=== PATIENT | female | born 1955 | race Caucasian/White ===

== ENCOUNTER 2017-02-03 01:41 | Inpatient (IN) | payer MEDICARE, MEDICAID ==
[~2017-02-03] VITALS: Ht 157.5 cm; Wt 111.2 kg
[2017-02-03] VITALS (9 sets, daily range): BP systolic 114–178; BP diastolic 53–85; PULSE 73–112; RESP 16–20; TEMP 95.8–98.3; O2SAT 90–96
[~2017-02-03 01:41] MED LIST: CIPR500T4 PO; COLA100C PO; IBUP400 PO; LORTA5 PO; TAMS0.4C67 PO
[2017-02-03] MEDS ORDERED: SODIUM CHLOR 0.9% 1000 ML INJ 1,000 ML IV SCH (02:01)
--- NOTE | 2017-02-03 02:07 | PD ---
HPI Chief Complaint: Flank/Kidney Pain Time Seen by Provider: 01:56 Travel History International Travel<30 days: No Contact w/Intl Traveler<30days: No Traveled to known affect area: No History of Present Illness HPI The patient is a 61-year-old female who presents emergency department for right flank pain. The patient states she had a negative salicylates either approximately 18 p.m. The patient then developed some right sided flank pain approximately 10 PM. The pain is sharp, persistent, radiates to the mid right back and down to the right lower quadrant, associated with nausea without any vomiting. The patient denies any dysuria, frequency, urgency, or hematuria. The patient had one episode of diarrhea at the onset of her symptoms and her last normal bowel movement was 3 hours prior to the onset of symptoms. The patient does have a history of previous hysterectomy, does note a history of nephrolithiasis with slightly worse pain at that time. She denies any known history of biliary colic. She denies any chest pain, shortness of breath, fever , chills, or sweats. The patient does not currently have a primary physician. PFSH Past Medical History Cancer: Yes (OVARIAN) Diminished Hearing: No : 3 Para: 3 Past Surgical History Gynecologic Surgery: Yes (OVARECTOMY WITH HYST) Hysterectomy: Yes Other Surgery: Yes (SHOULDER, HYSTERECTOMY) Social History Alcohol Use: No Tobacco Use: No Substance Use: No Allergies-Medications (Allergen,Severity, Reaction): Coded Allergies: Cortisone (Verified Allergy, Severe, SYNCOPY, 02/03/17) Seafood (Verified Allergy, Severe, HIVES, 02/03/17) Reported Meds & Prescriptions Reported Meds & Active Scripts Active No Active Prescriptions or Reported Medications Review of Systems Except as stated in HPI: all other systems reviewed are Neg General / Constitutional: No: Fever Cardiovascular: No: Chest Pain or Discomfort Respiratory: No: Shortness of Breath Gastrointestinal: Positive: Nausea, Diarrhea, Abdominal Pain, No: Vomiting, Constipation Genitourinary: No: Urgency, Frequency, Dysuria, Hematuria Neurologic: No: Dizziness Physical Exam Narrative GENERAL: Awake, alert, nontoxic-appearing 61-year-old female appears her stated age is in no acute respiratory distress. SKIN: Focused skin assessment warm/dry. HEAD: Atraumatic. Normocephalic. EYES: Pupils equal and round. No scleral icterus. No injection or drainage. ENT: No nasal bleeding or discharge. Mucous membranes pink and moist. NECK: Trachea midline. No JVD. CARDIOVASCULAR: Regular rate and rhythm. No murmur appreciated. RESPIRATORY: No accessory muscle use. Clear to auscultation. Breath sounds equal bilaterally. GASTROINTESTINAL: Abdomen soft, tender palpation right upper quadrant and right flank. Back: No CVA tenderness. MUSCULOSKELETAL: No obvious deformities. No clubbing. No cyanosis. No edema. NEUROLOGICAL: Awake and alert. No obvious cranial nerve deficits. Motor grossly within normal limits. Normal speech. PSYCHIATRIC: Appropriate mood and affect; insight and judgment normal. Data Data Last Documented VS Vital Signs Date Time Temp Pulse Resp B/P Pulse Ox O2 Delivery O2 Flow Rate FiO2 02/03/17 02:56 17 02/03/17 02:55 93 159/65 93 Room Air 02/03/17 01:43 98.3 Orders Complete Blood Count With Diff (02/03/17 02:01) Comprehensive Metabolic Panel (02/03/17 02:01) Lipase (02/03/17 02:01) Lactic Acid (02/03/17 02:01) Urinalysis - C+S If Indicated (02/03/17 02:01) Ct Abd/Pel W/O Iv Contrast (02/03/17 02:01) Iv Access Insert/Monitor (02/03/17 02:01) Ecg Monitoring (02/03/17 02:01) Oximetry (02/03/17 02:01) Morphine Inj (Morphine Inj) (02/03/17 02:15) Ondansetron Inj (Zofran Inj) (02/03/17 02:15) Sodium Chlor 0.9% 1000 Ml Inj (Ns 1000 M (02/03/17 02:01) Sodium Chloride 0.9% Flush (Ns Flush) (02/03/17 02:15) Ketorolac Inj (Toradol Inj) (02/03/17 02:15) Urine Culture (02/03/17 02:54) Ciprofloxacin 400 Mg Premix (Cipro 400 M (02/03/17 03:15) Morphine Inj (Morphine Inj) (02/03/17 03:15) Consult Urology (02/03/17 ) Admit To Inpatient (02/03/17 ) Vital Signs (Adult) Q4H (02/03/17 03:39) Activity Oob With Assistance (02/03/17 03:39) Electrical Line Mechanic / Telemetry .CONTINUOUS (02/03/17 03:39) Intake + Output JAVIER.QSHIFT (02/03/17 03:39) Diet Npo (02/03/17 Breakfast) Sodium Chloride 0.9% Flush (Ns Flush) (02/03/17 03:45) Sodium Chloride 0.9% Flush (Ns Flush) (02/03/17 09:00) Labs Laboratory Tests Test 02/03/17 02/03/17 02:05 02:54 White Blood Count 14.6 TH/MM3 Red Blood Count 4.77 MIL/MM3 Hemoglobin 14.9 GM/DL Hematocrit 42.9 % Mean Corpuscular Volume 89.8 FL Mean Corpuscular Hemoglobin 31.2 PG Mean Corpuscular Hemoglobin 34.8 % Concent Red Cell Distribution Width 13.1 % Platelet Count 248 TH/MM3 Mean Platelet Volume 8.8 FL Neutrophils (%) (Auto) 74.5 % Lymphocytes (%) (Auto) 16.8 % Monocytes (%) (Auto) 6.4 % Eosinophils (%) (Auto) 1.4 % Basophils (%) (Auto) 0.9 % Neutrophils # (Auto) 10.9 TH/MM3 Lymphocytes # (Auto) 2.4 TH/MM3 Monocytes # (Auto) 0.9 TH/MM3 Eosinophils # (Auto) 0.2 TH/MM3 Basophils # (Auto) 0.1 TH/MM3 CBC Comment DIFF FINAL Differential Comment Sodium Level 140 MEQ/L Potassium Level 4.2 MEQ/L Chloride Level 107 MEQ/L Carbon Dioxide Level 22.8 MEQ/L Anion Gap 10 MEQ/L Blood Urea Nitrogen 14 MG/DL Creatinine 1.08 MG/DL Estimat Glomerular Filtration 52 ML/MIN Rate Random Glucose 174 MG/DL Lactic Acid Level 1.6 mmol/L Calcium Level 8.9 MG/DL Total Bilirubin 0.6 MG/DL Aspartate Amino Transf 32 U/L (AST/SGOT) Alanine Aminotransferase 56 U/L (ALT/SGPT) Alkaline Phosphatase 104 U/L Total Protein 7.3 GM/DL Albumin 3.5 GM/DL Lipase 103 U/L Urine Color YELLOW Urine Turbidity CLOUDY Urine pH 5.5 Urine Specific [place] 1.026 Urine Protein 30 mg/dL Urine Glucose (UA) 70 mg/dL Urine Ketones 40 mg/dL Urine Occult Blood MOD Urine Nitrite NEG Urine Bilirubin NEG Urine Urobilinogen LESS THAN 2.0 MG/DL Urine Leukocyte Esterase LARGE Urine RBC 167 /hpf Urine WBC /hpf Urine WBC Clumps FEW Urine Squamous Epithelial 10 /hpf Cells Urine Transitional Epithelial 4 /hpf Cells Urine Renal Epithelial Cells 5 /hpf Urine Bacteria OCC /hpf Urine Hyaline Casts 3 /lpf Urine Mucus MOD /lpf Microscopic Urinalysis Comment CULTURE INDICATED MDM Medical Decision Making Medical Screen Exam Complete: Yes Emergency Medical Condition: Yes Medical Record Reviewed: Yes Interpretation(s) Laboratory Tests Test 02/03/17 02/03/17 02:05 02:54 White Blood Count 14.6 TH/MM3 Red Blood Count 4.77 MIL/MM3 Hemoglobin 14.9 GM/DL Hematocrit 42.9 % Mean Corpuscular Volume 89.8 FL Mean Corpuscular Hemoglobin 31.2 PG Mean Corpuscular Hemoglobin 34.8 % Concent Red Cell Distribution Width 13.1 % Platelet Count 248 TH/MM3 Mean Platelet Volume 8.8 FL Neutrophils (%) (Auto) 74.5 % Lymphocytes (%) (Auto) 16.8 % Monocytes (%) (Auto) 6.4 % Eosinophils (%) (Auto) 1.4 % Basophils (%) (Auto) 0.9 % Neutrophils # (Auto) 10.9 TH/MM3 Lymphocytes # (Auto) 2.4 TH/MM3 Monocytes # (Auto) 0.9 TH/MM3 Eosinophils # (Auto) 0.2 TH/MM3 Basophils # (Auto) 0.1 TH/MM3 CBC Comment DIFF FINAL Differential Comment Sodium Level 140 MEQ/L Potassium Level 4.2 MEQ/L Chloride Level 107 MEQ/L Carbon Dioxide Level 22.8 MEQ/L Anion Gap 10 MEQ/L Blood Urea Nitrogen 14 MG/DL Creatinine 1.08 MG/DL Estimat Glomerular Filtration 52 ML/MIN Rate Random Glucose 174 MG/DL Lactic Acid Level 1.6 mmol/L Calcium Level 8.9 MG/DL Total Bilirubin 0.6 MG/DL Aspartate Amino Transf 32 U/L (AST/SGOT) Alanine Aminotransferase 56 U/L (ALT/SGPT) Alkaline Phosphatase 104 U/L Total Protein 7.3 GM/DL Albumin 3.5 GM/DL Lipase 103 U/L Urine Color YELLOW Urine Turbidity CLOUDY Urine pH 5.5 Urine Specific [place] 1.026 Urine Protein 30 mg/dL Urine Glucose (UA) 70 mg/dL Urine Ketones 40 mg/dL Urine Occult Blood MOD Urine Nitrite NEG Urine Bilirubin NEG Urine Urobilinogen LESS THAN 2.0 MG/DL Urine Leukocyte Esterase LARGE Urine RBC 167 /hpf Urine WBC /hpf Urine WBC Clumps FEW Urine Squamous Epithelial 10 /hpf Cells Urine Transitional Epithelial 4 /hpf Cells Urine Renal Epithelial Cells 5 /hpf Urine Bacteria OCC /hpf Urine Hyaline Casts 3 /lpf Urine Mucus MOD /lpf Microscopic Urinalysis Comment CULTURE INDICATED Last Impressions Abdomen/Pelvis CT 02/03/17 0201 Signed Impressions: Service Date/Time: Friday, February 03, 2017 02:14 - CONCLUSION: Obstructive uropathy on the right side due to an 8 mm stone at the ureteropelvic junction. Eloy Garcia MD Differential Diagnosis Differential diagnosis includes nephrolithiasis, hydronephrosis, pyelonephritis , biliary colic, cholecystitis, pancreatitis, atypical appendicitis, diverticulitis. Narrative Course IV was established, labs are drawn and sent, and the patient was placed on cardiac telemetry monitoring and continuous pulse oximetry monitoring. The patient was administered morphine, Toradol, Zofran, and IV fluids. Noncontrast CT of the abdomen and pelvis was ordered. UA reveals 167 RBCs and innumerable WBCs, therefore, patient was administered Cipro 400 mg intravenously. Patient was reevaluated at 3 AM, still has mild discomfort, therefore, was redosed with morphine [address] reveals obstructive uropathy with an 8 mm stone. Patient has obstructive uropathy with 8 mm stone and underlying pyelonephritis, patient will need urology consultation as she may benefit from stent placement. Therefore, patient will be kept nothing by mouth, placed on IV fluids, the on-call medical service was paged for admission. Physician Communication Physician Communication The on-call medical service was paged for remission. I discussed the patient with Dr. Cabrales who agrees with admission. Diagnosis Primary Impression: Nephrolithiasis Additional Impressions: Obstructive uropathy Pyelonephritis Admitting Information Admitting Physician Requests: Admit Scripts No Active Prescriptions or Reported Meds Condition: Stable Dewey Mascorro MD Feb 03, 2017 02:06
[2017-02-03] MEDS ORDERED: SODIUM CHLORIDE 0.9% FLUSH 10 ML FLUSH IV FLUSH PRN ×2 (02:15→03:45)
[2017-02-03] MEDS ORDERED: KETOROLAC TROMETHAMINE 30 MG/ML (IVP) VIAL IVP ONE (02:15)
[2017-02-03] MEDS ORDERED: ONDANSETRON HCL 4 MG/2 ML VIAL IVP ONE (02:15)
[2017-02-03] MEDS ORDERED: MORPHINE SULFATE 4 MG/ML INJ IV PUSH ONE ×2 (02:15→03:15)
[2017-02-03 02:23] LABS: AUTOMATED NEUTROPHIL # 10.9 TH/MM3 (1.8-7.7); BASOPHIL # 0.1 TH/MM3 (0-0.2); BASOPHIL % 0.9 % (0.0-2.0); EOSINOPHIL # 0.2 TH/MM3 (0-0.4); EOSINOPHIL % 1.4 % (0.0-4.0); HEMATOCRIT 42.9 % (35.0-46.0); HEMO FLAGS DIFF FINAL; LYMPH % 16.8 % (9.0-44.0); LYMPHOCYTE # 2.4 TH/MM3 (1.0-4.8); MEAN CELL VOLUME 89.8 FL (80.0-100.0); MEAN CORPUSCULAR HEMOGLOBIN 31.2 PG (27.0-34.0); MEAN CORPUSCULAR HGB CONC 34.8 % (32.0-36.0); MONO % 6.4 % (0.0-8.0); NEUT % 74.5 % (16.0-70.0); PLATELET COUNT 248 TH/MM3 (150-450); RED BLOOD COUNT 4.77 MIL/MM3 (4.00-5.30); RED CELL DISTRIBUTION WIDTH 13.1 % (11.6-17.2); WHITE BLOOD COUNT 14.6 TH/MM3 (4.0-11.0)
[2017-02-03 02:34] LABS: ALT (GPT) 56 U/L (10-53); ANION GAP 10 MEQ/L (5-15); AST (GOT) 32 U/L (15-37); BICARBONATE 22.8 MEQ/L (21.0-32.0); BLOOD UREA NITROGEN 14 MG/DL (7-18); CHLORIDE 107 MEQ/L (98-107); GLOMERULAR FILTRATION RATE 52 ML/MIN (>89); POTASSIUM 4.2 MEQ/L (3.5-5.1); SODIUM (NA) 140 MEQ/L (136-145)
[2017-02-03 02:36] LABS: ALKALINE PHOSPHATASE 104 U/L (45-117); TOTAL BILIRUBIN ADULT 0.6 MG/DL (0.2-1.0)
[2017-02-03 03:09] LABS: BACTERIA, URINE OCC /hpf; BLOOD, URINE MOD (NEG); COMMENT (UR) CULTURE INDICATED; CULTURE IF INDICATED CULTURE INDICATED; GLUCOSE,URINE 70 mg/dL (NEG); HYALINE CAST, URINE 3 /lpf (RARE); KETONE, URINE 40 mg/dL (NEG); MUCUS URINE MOD /lpf (OCC); NITRITE,URINE NEG (NEG); PH, URINE 5.5 (5.0-8.5); RENAL EPITHELIAL CELLS 5 /hpf; SQUAMOUS EPITHELIAL CELL URINE 10 /hpf (0-5); TRANSITIONAL EPI CELLS, URINE 4 /hpf; URINE COLOR YELLOW (YELLW/STRAW)
[2017-02-03] MEDS ORDERED: CIPROFLOXACIN 400 MG PREMIX 200 ML IV ONE (03:15)
--- NOTE | 2017-02-03 03:17 | RADRPT ---
EXAM DATE/TIME: 02/03/2017 02:14 [facility] COMPARISON: CT ABDOMEN & PELVIS W/O CONTRAST, June 13, 2015, 6:23. INDICATIONS : Right flank pain with nausea for 4 hours ORAL CONTRAST: No oral contrast ingested. RADIATION DOSE: 25.96 CTDIvol (mGy) MEDICAL HISTORY : Ovarian cancer. SURGICAL HISTORY : Hysterectomy. Oopherectomy. ENCOUNTER: Initial ACUITY: 1 day PAIN SCALE: 8/10 LOCATION: Right flank TECHNIQUE: Volumetric scanning of the abdomen and pelvis was performed. Using automated exposure control and ad justment of the mA and/or kV according to patient size, radiation dose was kept as low as reasonably achievable to obtain optimal diagnostic quality images. DICOM format image data is available electro nically for review and comparison. FINDINGS: LOWER LUNGS: The visualized lower lungs are clear. LIVER: Homogeneous density without lesion for noncontrast technique. There is no dilation of the biliary tr ee. No calcified gallstones. SPLEEN: Normal size without lesion. PANCREAS: Within normal limits. KIDNEYS: There is mild hydronephrosis on the right side with a 8 mm calcified stone at the ureteropelvic junct ion causing obstruction. There is also some induration of the fat of the perirenal space suggesting pyelosinus backflow. The right ureter distal to the stone is normal in dimension. No additional lorena cified stones in the collecting system of the right kidney. No calcified stones in the left collecti ng system or ureter. ADRENAL GLANDS: Within normal limits. VASCULAR: There is no aortic aneurysm. BOWEL/MESENTERY: No dilated loops of small or large bowel. The appendix is identified in the right lower quadrant, is normal in dimension and the lumen contains some gas. Several small sigmoid diverticula without radi ographic of diverticulitis. ABDOMINAL WALL: Within normal limits. RETROPERITONEUM: There is no lymphadenopathy. BLADDER: No wall thickening or mass. REPRODUCTIVE: Hysterectomy. INGUINAL: There is no lymphadenopathy or hernia. MUSCULOSKELETAL: Within normal limits for patient age. CONCLUSION: Obstructive uropathy on the right side due to an 8 mm stone at the ureteropelvic junction. Eloy Garcia MD on February 03, 2017 at 3:10 Board Certified Radiologist. This report was verified electronically.
[2017-02-03] MEDS ORDERED: NALOXONE HCL 0.4 MG/ML AMP IV PRN (03:45)
[2017-02-03] MEDS ORDERED: ONDANSETRON HCL 4 MG/2 ML VIAL IVP PRN (03:45)
[2017-02-03] MEDS ORDERED: MORPHINE SULFATE 4 MG/ML INJ IV PUSH PRN (03:45)
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
[2017-02-03] MEDS: SODIUM CHLORIDE 0.9% FLUSH 10 ML FLUSH IV FLUSH SCH ×2 (08:33→20:19)
--- NOTE | 2017-02-03 10:26 | RADRPT ---
EXAM DATE/TIME: 02/03/2017 09:46 [facility] COMPARISON: CT ABDOMEN & PELVIS W/O CONTRAST, February 03, 2017, 2:14. INDICATIONS : Evaluate for calculi. MEDICAL HISTORY : Ovarian cancer. SURGICAL HISTORY : Hysterectomy. Oopherectomy. ENCOUNTER: Subsequent ACUITY: 1 day PAIN SCORE: 4/10 LOCATION: Abdomen, all quadrants. FINDINGS: Nonobstructive bowel gas pattern. Right upper quadrant calcification to the right of L2 characteristi c of the known ureteral calculus. Osseous structures are intact. Phleboliths in the pelvis. CONCLUSION: 1. A right proximal ureteral stone is identified measuring 8 mm projecting to the right of L2. Ortiz Leo MD on February 03, 2017 at 10:23 Board Certified Radiologist. This report was verified electronically.
[2017-02-03 12:03] LABS: HDL CHOLESTEROL 41.8 MG/DL (40.0-60.0); LDL CHOLESTEROL 107 MG/DL (0-99)
[2017-02-03 13:05] LABS: HEMOGLOBIN A1a 1.4 %; HEMOGLOBIN A1b 1.1 %; HEMOGLOBIN Ao 81.2 %; HEMOGLOBIN F 1.2 %; HEMOGLOBIN LA1C 2.2 %; HEMOGLOBIN P3 3.9 %
[2017-02-03] MEDS: TAMSULOSIN HCL 0.4 MG CAP PO SCH ×2 (13:28→20:19)
[2017-02-03] MEDS: KETOROLAC TROMETHAMINE 60 MG/2 ML (IM) VIAL IM SCH ×3 (13:32→22:50)
[2017-02-03] MEDS: CIPROFLOXACIN 400 MG PREMIX 200 ML IV SCH (15:44)
--- NOTE | 2017-02-03 17:21 | EKG ---
Date Performed: 02/03/2017 Time Performed: 10:12:13 PTAGE: 61 years EKG: Sinus rhythm POSSIBLE INFERIOR MYOCARDIAL INFARCTION , PROBABLY OLD BORDERLINE ECG PREVIOUS TRACING : 06/13/2015 06.03 Compared to prior tracing no significant change DOCTOR: Gregg Dinero Interpretating Date/Time 02/03/2017 17:19:12
--- NOTE | 2017-02-03 18:01 | MB ---
cc: HERMAN VALLECILLO MD DATE OF CONSULTATION 02/03/2017 REASONS FOR CONSULTATION 1. Right 8 mm UPJ stone with mild hydronephrosis. 2. Right flank pain. HISTORY OF THE PRESENT ILLNESS The patient is a 61-year-old female with history of kidney stone in the past presented at [place] [facility] last night with sharp stabbing right flank pain, 10/10 at its worst with associated nausea. Denies any fevers, chills, dysuria, hematuria, burning, urgency. At that time a CT stone protocol was done in the ER which showed an 8 mm right UPJ stone with mild hydronephrosis. The patient was admitted for pain control and urology was consulted. Apparently according to the patient she had similar episodes 7 months ago where she spontaneously passed a stone. She thinks this was on her left side. She stated that the stone was much smaller and she had passed it just prior to having a surgical procedure performed. Her mother has a strong history of kidney stones. Over the past several months she had been doing quite well with no pain on her sides. She denies any recent urinary tract infections. Denies any bleeding tendencies or taking any blood thinners. She states she may have been once diagnosed with diabetes in the past. Currently her pain is under control, it is 2/10 at its worst with IV narcotics. REVIEW OF SYSTEMS See history of present illness. All systems reviewed otherwise were negative. PAST HISTORY 1. Kidney stones. 2. Questionable diabetes. PAST SURGICAL HISTORY 1. Had a hysterectomy. 2. Bilateral shoulder surgery. MEDICATIONS Home medications are none. ALLERGIES TO CORTIZONE AND SEAFOOD. FAMILY HISTORY Significant for kidney stones, hypertension, diabetes. SOCIAL HISTORY She quit smoking in 2005. Quit alcohol use in 1995. Denies any illegal drug use. PHYSICAL EXAMINATION VITAL SIGNS: Temperature 95.8, pulse 82, respiratory 18, BP 132/50. Sating 99% on room air. GENERAL: She is alert and oriented times three. In no apparent distress. Pleasant, cooperative lady who appears her stated age. HEENT: Head is normocephalic, atraumatic. Eyes, no scleral icterus. Extraocular muscles intact. NECK: Supple. Trachea is midline. No JVD. SKIN: No ulcers or rashes. Mucous membranes pink and moist. LUNGS: Clear to auscultation bilaterally. No wheezes, rhonchi or rales. HEART: Regular rate and rhythm. No murmurs, rubs, or gallops. ABDOMEN: Soft and nontender. Nondistended. Positive bowel sounds. GENITOURINARY: No CVA test bilaterally. PELVIC: Exam deferred. EXTREMITIES: Nontender. No clubbing, cyanosis, edema. PSYCHIATRIC: Normal affect. NEUROLOGIC: Cranial nerves II through XII intact. Strength 05/05 all four extremities. LABORATORY DATA Labs show sodium 140, potassium 4.2, chloride 107, bicarb 22.8, BUN 14, creatinine 1.08. Lactic acid 1.6, calcium 8.9. White count 14.6, hemoglobin 14.9, hematocrit 42.9, platelet count 248. Her urine was cloudy with moderate blood, large leukocyte esterase. Culture is currently pending. IMAGING STUDIES CT of the abdomen and pelvis without contrast images were reviewed. Agree with the radiologist's report. The patient has an obstructing 8 mm right UPJ stone with mild hydronephrosis. Her left kidney is normal. ASSESSMENT The patient is a 61-year-old female with history of kidney stone who is admitted with right flank pain and is found to have obstructing right 8 mm UPJ stone with mild hydronephrosis. PLAN The patient is currently quite comfortable and pain is under control. Recommend conservative management at this time. We will start her on Flomax to help facilitate potentially passage of stone. We will add Toradol for pain control. We will repeat labs and a KUB in the morning to reassess progress of stone. However, if there is not improved resolution in the next 24 hours, then she will likely undergo a surgical procedure to relieve obstruction of the stone in her right kidney as well as possibly definitive treatment of the stone. We are going to continue antibiotics per the primary team. Thank you for this consultation. We will follow along with you. MD JUANCARLOS Geller/STEFANO /12:31 PM /5:35 PM
[2017-02-04] VITALS (7 sets, daily range): BP systolic 104–124; BP diastolic 51–59; PULSE 84–95; RESP 16–20; TEMP 96.6–99.3; O2SAT 90–96
[2017-02-04] MEDS: MORPHINE SULFATE 4 MG/ML INJ IV PUSH PRN (01:11)
[2017-02-04] MEDS: CIPROFLOXACIN 400 MG PREMIX 200 ML IV SCH ×2 (01:12→14:45)
[2017-02-04] MEDS ORDERED: POVIDONE IODINE 5% (ANTISEPSIS KIT) 4 APPLICATIONS EACH NARE PRN (04:45)
[2017-02-04] MEDS ORDERED: INSULIN HUMAN REGULAR 1,000 UNITS/10 ML VIAL SQ PRN (04:45)
[2017-02-04] MEDS ORDERED: LACTATED RINGER'S 1000 ML IV PRN (04:45)
[2017-02-04] MEDS ORDERED: SODIUM CHLORID 0.9% 500 ML IV PRN (04:45)
[2017-02-04] MEDS ORDERED: CHLORHEXIDINE GLUCONATE 2 % 1 PACK (2 CLOTHS) TOPICAL PRN (04:45)
[2017-02-04] MEDS: KETOROLAC TROMETHAMINE 60 MG/2 ML (IM) VIAL IM SCH (05:08)
[2017-02-04 06:08] LABS: BASOPHIL # 0.1 TH/MM3 (0-0.2); BASOPHIL % 0.8 % (0.0-2.0); EOSINOPHIL # 0.3 TH/MM3 (0-0.4); EOSINOPHIL % 3.2 % (0.0-4.0); HEMATOCRIT 36.5 % (35.0-46.0); HEMO FLAGS DIFF FINAL; LYMPHOCYTE # 3.1 TH/MM3 (1.0-4.8); MEAN CELL VOLUME 91.2 FL (80.0-100.0); MONO % 8.2 % (0.0-8.0); NEUT % 57.8 % (16.0-70.0); PLATELET COUNT 188 TH/MM3 (150-450); RED CELL DISTRIBUTION WIDTH 13.1 % (11.6-17.2); WHITE BLOOD COUNT 10.3 TH/MM3 (4.0-11.0)
[2017-02-04 06:32] LABS: BICARBONATE 23.6 MEQ/L (21.0-32.0); POTASSIUM 3.9 MEQ/L (3.5-5.1)
--- NOTE | 2017-02-04 06:44 | RADRPT ---
EXAM DATE/TIME: 02/04/2017 05:19 [facility] COMPARISON: CT ABDOMEN & PELVIS W/O CONTRAST, February 03, 2017, 2:14. ABDOMEN KUB ONLY, February 03, 2017, 9:46. INDICATIONS : Evaluate for calculi. MEDICAL HISTORY : Ovarian cancer. SURGICAL HISTORY : Hysterectomy. Oopherectomy. ENCOUNTER: Subsequent ACUITY: 2 days PAIN SCORE: 4/10 LOCATION: abdomen, all quadrants. FINDINGS: 6 mm faint calcification in right flank is superimposed upon the L3 transverse process, slightly more inferior than on yesterday's KUB. No dilated loops of small or large bowel. The visualized lower l ungs are clear. CONCLUSION: 6 noncalcified stone is still in the right flank. Eloy Garcia MD on February 04, 2017 at 6:41 Board Certified Radiologist. This report was verified electronically.
--- NOTE | 2017-02-04 08:18 | HHI.PR ---
Subjective Remarks still with right flank discomfort- , no dysuria, urgency, no gross hematuria did not pass out any stone no nausea or vomiting, nofever or chills Objective Vitals Vital Signs Date Time Temp Pulse Resp B/P Pulse Ox O2 Delivery O2 Flow Rate FiO2 02/04/17 04:00 99.3 88 20 119/56 90 02/04/17 00:00 98.4 88 20 124/59 95 02/03/17 20:00 97.0 90 20 125/56 94 02/03/17 16:00 96.7 93 18 121/55 90 02/03/17 12:00 95.8 82 18 132/53 94 I/O 02/03/17 02/03/17 02/03/17 02/04/17 02/04/17 02/04/17 07:00 15:00 23:00 07:00 15:00 23:00 Intake Total 127 ml 1229 ml 728 ml 1087 ml Output Total 225 ml 125 ml Balance 127 ml 1229 ml 503 ml 962 ml Intake Oral 220 ml 240 ml 125 ml IV Total 127 ml 1009 ml 488 ml 962 ml Output Urine Total 225 ml 125 ml Stool Total 0 ml 0 ml # Voids 1 1 # Bowel Movements 0 Result Diagram: 02/04/17 0516 02/04/17 0516 Imaging Last Impressions Abdomen X-Ray 02/04/17 0600 Signed Impressions: Service Date/Time: Saturday, February 04, 2017 05:19 - CONCLUSION: 6 noncalcified stone is still in the right flank. Eloy Garcia MD Abdomen/Pelvis CT 02/03/17 0201 Signed Impressions: Service Date/Time: Friday, February 03, 2017 02:14 - CONCLUSION: Obstructive uropathy on the right side due to an 8 mm stone at the ureteropelvic junction. Eloy Garcia MD Objective Remarks awake and alert, oriented x 3, NAD anicteric lungs clear regular rhythm abdomen soft, nontender mild right CVA tenderness extremities no edema A/P Problem List: (1) Obstructive uropathy ICD Code: N13.9 Status: Acute (2) Pyelonephritis ICD Code: N12 Status: Acute (3) Glucose intolerance (impaired glucose tolerance) ICD Code: R73.02 Status: Acute Assessment and Plan 61-year-old female with obstructive uropathy secondary to right UPJ stone presenting with right flank pain.-With positive history of passing out stone in the past Continue IV hydration. Strain all urine. If pass- send stone for stone analysis Urology - possibly taking her to OR today Keep nothing by mouth. Acute pyelonephritis with WBC elevation right flank pain and pyuria Continue on IV ciprofloxacin every 12. Follow final culture and sensitivity. - pending Obesity - BMI of 41.9 patient encouraged on weight reduction and exercise program patient very motivated DM type 2- A1C- 8.8 get nutrition counselling good readings here on ADA diet diabetes teaching per nurse Acute Kidney injury - continue IVF hydration- 125 cc/hr , avoid NSAIds- DC toradol - ff BMP Encourage increase ambulation.- per patient she has been up Hortencia Lea MD Feb 04, 2017 08:18
[2017-02-04] MEDS: SODIUM CHLORIDE 0.9% FLUSH 10 ML FLUSH IV FLUSH SCH ×2 (09:00→21:00)
[2017-02-04] MEDS: TAMSULOSIN HCL 0.4 MG CAP PO SCH ×2 (09:08→21:35)
[2017-02-04] MEDS: SODIUM CHLOR 0.9% 1000 ML INJ 1,000 ML IV SCH ×2 (09:09→14:45)
--- NOTE | 2017-02-04 13:30 | HHI.PR ---
Subjective Patient symptoms today pain improved, 4/10 with addition of Toradol. Nausea resolved. Denies fevers, chills, dysuria, hematuria. Objective Vital Signs Vital Signs Date Time Temp Pulse Resp B/P Pulse Ox O2 Delivery O2 Flow Rate FiO2 02/04/17 12:00 98.7 95 17 107/53 96 02/04/17 08:00 96.6 91 17 104/51 94 02/04/17 04:00 99.3 88 20 119/56 90 02/04/17 00:00 98.4 88 20 124/59 95 02/03/17 20:00 97.0 90 20 125/56 94 02/03/17 16:00 96.7 93 18 121/55 90 Intake & Output 02/04/17 02/04/17 07:00 19:00 Intake Total 1815 ml Output Total 350 ml Balance 1465 ml Intake Oral 365 ml IV Total 1450 ml Output Urine Total 350 ml Stool Total 0 ml Result Diagram: 02/04/17 0516 02/04/17 0516 Imaging Last 24 hours Impressions Abdomen X-Ray 02/04/17 0600 Signed Impressions: Service Date/Time: Saturday, February 04, 2017 05:19 - CONCLUSION: 6 noncalcified stone is still in the right flank. Eloy Garcia MD Objective Remarks NAD. A/O x 3 abd soft No CVAT Medications and IVs Current Medications Medications (Trade) Dose Ordered Sig/Imelda Route Start Time Stop Time Status Last Admin (NS Flush) 2 ml UNSCH PRN IV FLUSH 02/03/17 03:45 (NS Flush) 2 ml BID IV FLUSH 02/03/17 09:00 (Zofran Inj) 4 mg Q6H PRN IVP 02/03/17 03:45 Naloxone HCl 0.4 mg 0.4 mg UNSCH PRN IV 02/03/17 03:45 (Cipro 400 Mg Premix) 200 ml @ 200 mls/hr Q12H IV 02/03/17 15:00 02/04/17 01:12 (Morphine Inj) 2 mg Q4HR PRN IV PUSH 02/03/17 12:00 02/04/17 01:11 Tamsulosin HCl 0.4 mg 0.4 mg Q12HR PO 02/03/17 13:00 02/04/17 09:08 Lactated Ringer's 1,000 ml @ 30 mls/hr Q24H PRN IV 02/04/17 04:45 02/07/17 04:44 (NS 1000 ml Inj) 1,000 ml @ 125 mls/hr Q8H IV 02/04/17 08:15 02/04/17 09:09 Assessment and Plan Problem List: (1) Renal colic on right side ICD Code: N23 Status: Acute (2) Obstruction of right ureteropelvic junction (UPJ) due to stone ICD Code: N20.1 Status: Acute (3) UTI (urinary tract infection) ICD Code: N39.0 Status: Acute Assessment and Plan Even though pain has improved, stone remains is stable location. She is unlikely to pass stone. Scheduled for cystoscopy, right retrograde pyelogram, right ureteroscopy, laser lithotripsy, stent insertion tomorrow afternoon around 3:30. NPO after midnight. Clyde Ellis MD Feb 04, 2017 13:30
[2017-02-05] VITALS (7 sets, daily range): BP systolic 106–156; BP diastolic 56–66; PULSE 80–98; RESP 17–20; TEMP 96.6–98.3; O2SAT 94–96
[2017-02-05] MEDS: SODIUM CHLOR 0.9% 1000 ML INJ 1,000 ML IV SCH ×3 (00:01→16:16)
[2017-02-05] MEDS: CIPROFLOXACIN 400 MG PREMIX 200 ML IV SCH ×2 (03:54→14:08)
[2017-02-05] MEDS ORDERED: LACTATED RINGER'S 1000 ML IV PRN (04:00)
[2017-02-05] MEDS ORDERED: CHLORHEXIDINE GLUCONATE 2 % 1 PACK (2 CLOTHS) TOPICAL PRN (04:00)
[2017-02-05] MEDS ORDERED: INSULIN HUMAN REGULAR 1,000 UNITS/10 ML VIAL SQ PRN (04:00)
[2017-02-05 07:03] LABS: POTASSIUM 3.8 MEQ/L (3.5-5.1)
[2017-02-05] MEDS: TAMSULOSIN HCL 0.4 MG CAP PO SCH ×2 (08:40→20:36)
[2017-02-05] MEDS: SODIUM CHLORIDE 0.9% FLUSH 10 ML FLUSH IV FLUSH SCH ×2 (08:41→20:43)
--- NOTE | 2017-02-05 10:40 | HHI.PR ---
Subjective Remarks voiding spontaneously- no urgency, no hematuria still with flank discomfort - - but not requiring IV pain meds as often went over goals with her- exercise and diet, home glucose monitoring states has not been seen by nutrtionist and diabetes teaching bedside not done yet Objective Vitals Vital Signs Date Time Temp Pulse Resp B/P Pulse Ox O2 Delivery O2 Flow Rate FiO2 02/05/17 08:00 96.6 94 17 156/65 95 02/05/17 04:00 97.5 98 20 112/56 94 02/05/17 00:00 97.8 93 20 106/66 94 02/04/17 20:00 84 02/04/17 20:00 98.1 88 20 123/58 95 02/04/17 16:00 98.0 88 16 120/57 95 02/04/17 12:00 98.7 95 17 107/53 96 I/O 02/04/17 02/04/17 02/04/17 02/05/17 02/05/17 02/05/17 07:00 15:00 23:00 07:00 15:00 23:00 Intake Total 1087 ml 1365 ml 1054 ml 991 ml Output Total 125 ml 800 ml 1075 ml 900 ml Balance 962 ml 565 ml -21 ml 91 ml Intake Oral 125 ml 240 ml 240 ml 0 ml IV Total 962 ml 1125 ml 814 ml 991 ml Output Urine Total 125 ml 800 ml 1075 ml 900 ml Stool Total 0 ml 0 ml 0 ml # Bowel Movements 0 Result Diagram: 02/04/17 0516 02/05/17 0526 Imaging Last Impressions Abdomen X-Ray 02/04/17 0600 Signed Impressions: Service Date/Time: Saturday, February 04, 2017 05:19 - CONCLUSION: 6 noncalcified stone is still in the right flank. Eloy Garcia MD Abdomen/Pelvis CT 02/03/17 0201 Signed Impressions: Service Date/Time: Friday, February 03, 2017 02:14 - CONCLUSION: Obstructive uropathy on the right side due to an 8 mm stone at the ureteropelvic junction. Eloy Garcia MD Objective Remarks awake and alert, oriented x 3, NAD, up and ambulating anicteric lungs clear regular rhythm abdomen soft, nontender mild right CVA tenderness extremities no edema A/P Problem List: (1) Obstructive uropathy ICD Code: N13.9 Status: Acute (2) Pyelonephritis ICD Code: N12 Status: Acute (3) Glucose intolerance (impaired glucose tolerance) ICD Code: R73.02 Status: Acute Assessment and Plan 61-year-old female with obstructive uropathy secondary to right UPJ stone presenting with right flank pain.-With positive history of passing out stone in the past Continue IV hydration. Strain all urine. If pass- send stone for stone analysis Urology - OR today Keep nothing by mouth. Acute pyelonephritis with WBC elevation right flank pain and pyuria Continue on IV ciprofloxacin every 12. Follow final culture and sensitivity. - pending Obesity - BMI of 41.9 patient encouraged on weight reduction and exercise program patient very motivated DM type 2- A1C- 8.8 get nutrition counselling- dietary consult- reordered good readings here on ADA diet diabetes teaching per nurse- reordered Acute Kidney injury- improved - continue IVF hydration- 125 cc/hr , avoid NSAIds- DC toradol - ff BMP Encourage increase ambulation.- per patient she has been up d/w patient at length Hortencia Lea MD Feb 05, 2017 10:40
[2017-02-05] MEDS ORDERED: LACTATED RINGER'S 1000 ML INJ 1,000 ML IV ONE (12:00)
[2017-02-05] MEDS ORDERED: PROPOFOL 200 MG/20 ML AMP IV ONE (12:00)
[2017-02-05] MEDS ORDERED: ONDANSETRON HCL 4 MG/2 ML VIAL IV PUSH ONE (12:00)
[2017-02-05] MEDS ORDERED: FAMOTIDINE 20 MG/2 ML VIAL ONE (16:49)
[2017-02-05] MEDS ORDERED: MIDAZOLAM HCL 2 MG/2 ML VIAL ONE (16:49)
[2017-02-05] MEDS ORDERED: ACETAMINOPHEN 1000 MG/100 ML VIAL IV ONE (16:49)
[2017-02-05] MEDS ORDERED: DEXAMETHASONE SOD PHOS 4 MG/ML VIAL ONE (16:49)
[2017-02-05] MEDS ORDERED: IOHEXOL 350 MG/ML 50 ML BTL (for RAD DIAG) ONE (17:28)
[2017-02-05] MEDS ORDERED: SUGAMMADEX SODIUM 200 MG/2 ML VIAL IV PUSH ONE ×2 (17:45)
--- NOTE | 2017-02-05 17:45 | PD.OP ---
Operative Report Date of Surgery: Feb 05, 2017 Preoperative Diagnosis: (1) Obstruction of right ureteropelvic junction (UPJ) due to stone (2) Pyelonephritis Postoperative Diagnosis: Procedure: cystoscopy, right retrograde pyelogram, right ureteroscopy, right ureteral stent insertion. Surgeon: Clyde Ellis Professional Caster(s): Clyde Clemens MD Feb 05, 2017 17:45
[2017-02-05] MEDS ORDERED: fentaNYL CITRATE 250 MCG/5 ML AMP ONE (18:18)
[2017-02-05] MEDS ORDERED: DO NOT ADM ANY ANTICOAGULANT DRUGS PRN (19:15)
[2017-02-05] MEDS: MORPHINE SULFATE 4 MG/ML INJ IV PUSH PRN ×2 (23:12)
[2017-02-06] VITALS (8 sets, daily range): BP systolic 115–138; BP diastolic 56–74; PULSE 53–102; RESP 16–20; TEMP 96.1–98.1; O2SAT 93–98
[2017-02-06] MEDS: CIPROFLOXACIN 400 MG PREMIX 200 ML IV SCH (02:03)
[2017-02-06] MEDS: SODIUM CHLOR 0.9% 1000 ML INJ 1,000 ML IV SCH ×3 (02:03→15:59)
[2017-02-06] MEDS: TAMSULOSIN HCL 0.4 MG CAP PO SCH (08:31)
[2017-02-06] MEDS: MORPHINE SULFATE 4 MG/ML INJ IV PUSH PRN (08:31)
[2017-02-06] MEDS: SODIUM CHLORIDE 0.9% FLUSH 10 ML FLUSH IV FLUSH SCH (08:31)
[2017-02-06] MEDS ORDERED: BLOOD GLUCOSE M1 KIT (08:50)
--- NOTE | 2017-02-06 08:53 | HHI.PR ---
Subjective Remarks minimal flank discomfort no dysuria Objective Vitals Vital Signs Date Time Temp Pulse Resp B/P Pulse Ox O2 Delivery O2 Flow Rate FiO2 02/06/17 08:00 97.3 80 16 122/58 93 02/06/17 05:41 97.7 102 20 115/56 94 02/06/17 01:08 98 21 02/06/17 00:00 98.1 95 20 131/60 93 02/05/17 21:04 92 02/05/17 20:00 97.2 94 20 146/65 96 02/05/17 19:15 99.0 78 16 145/63 95 Nasal Cannula 3 02/05/17 19:00 81 17 155/64 95 Nasal Cannula 3 02/05/17 18:45 97 16 152/67 95 Nasal Cannula 3 02/05/17 18:30 97 15 107/55 93 Nasal Cannula 3 02/05/17 18:12 97.9 101 15 118/59 97 Simple Mask 6 02/05/17 16:00 98.3 80 17 143/66 95 02/05/17 12:00 96.9 83 17 131/63 95 I/O 02/05/17 02/05/17 02/05/17 02/06/17 02/06/17 02/06/17 07:00 15:00 23:00 07:00 15:00 23:00 Intake Total 991 ml 1000 ml 1240 ml 954 ml Output Total 900 ml 500 ml 1600 ml 1075 ml Balance 91 ml 500 ml -360 ml -121 ml Intake Oral 0 ml 0 ml 240 ml 120 ml IV Total 991 ml 1000 ml 100 ml 834 ml Other 900 ml Output Urine Total 900 ml 500 ml 1600 ml 1075 ml Stool Total 0 ml 0 ml 0 ml # Bowel Movements 0 Result Diagram: 02/04/17 0516 02/05/17 0526 Imaging Last Impressions Abdomen X-Ray 02/04/17 0600 Signed Impressions: Service Date/Time: Saturday, February 04, 2017 05:19 - CONCLUSION: 6 noncalcified stone is still in the right flank. Eloy Garcia MD Abdomen/Pelvis CT 02/03/17 0201 Signed Impressions: Service Date/Time: Friday, February 03, 2017 02:14 - CONCLUSION: Obstructive uropathy on the right side due to an 8 mm stone at the ureteropelvic junction. Eloy Garcia MD Objective Remarks awake and alert, oriented x 3, NAD, up and ambulating anicteric lungs clear regular rhythm abdomen soft, nontender mild right CVA tenderness extremities no edema Procedures custoscopy and right ureteral stent placement A/P Problem List: (1) Obstructive uropathy ICD Code: N13.9 Status: Acute (2) Pyelonephritis ICD Code: N12 Status: Acute (3) Glucose intolerance (impaired glucose tolerance) ICD Code: R73.02 Status: Acute Assessment and Plan 61-year-old female with obstructive uropathy secondary to right UPJ stone presenting with right flank pain.-With positive history of passing out stone in the past S/P ureteral stent placed 02/05 Continue IV hydration. Strain all urine. If pass- send stone for stone analysis on Flomax q 12 Acute pyelonephritis with WBC elevation right flank pain and pyuria Continue on IV ciprofloxacin every 12. -change to po Obesity - BMI of 41.9 patient encouraged on weight reduction and exercise program patient very motivated DM type 2- A1C- 8.8 get nutrition counselling- dietary consult- reordered good readings here on ADA diet diabetes teaching /educator- reordered will benefit from metformin Acute Kidney injury- improved - continue IVF hydration- 125 cc/hr , avoid NSAIds- DC toradol - ff BMP Encourage increase ambulation.- per patient she has been up d/w patient at length DC today if cleared with Urology= OP ff up Hortencia Lea MD Feb 06, 2017 08:53
[2017-02-06] MEDS ORDERED: ACETAMINOPHEN/HYDROcodone 325 MG/5 MG TAB PO PRN (09:00)
[2017-02-06] MEDS ORDERED: metFORMIN HCL 500 MG TAB PO SCH (09:00)
[2017-02-06] MEDS ORDERED: CIPR-9 PO (16:00)
[2017-02-06] MEDS ORDERED: CIPROFLOXACIN 500 MG TAB PO SCH (16:00)
[2017-02-06] MEDS ORDERED: TAMS5CAP PO (16:00)
[2017-02-06] MEDS ORDERED: METF500 PO (16:00)
[2017-02-06] MEDS ORDERED: ULTR37.55 PO (16:13)
--- NOTE | 2017-02-06 16:15 | HHI.DS ---
Discharge Summary Admission Date Feb 03, 2017 at 03:40 Discharge Date: Feb 06, 2017 Admitting Diagnosis obstructive uropathy, nephrolithiasis, pyelonephritis (1) Obstructive uropathy ICD Code: N13.9 Diagnosis: Principal (2) Pyelonephritis ICD Code: N12 Diagnosis: Principal (3) Glucose intolerance (impaired glucose tolerance) ICD Code: R73.02 Diagnosis: Principal Procedures cYstoscopy and right ureteral stent placement Brief History - From Admission Patient is a 61-year-old female with known history of obstructive uropathy with history of UPJ stone that she spontaneously passed around 6-7 months ago. Patient was doing quite well until last evening around started having right flank pain scale 8-10. Patient denies any fever chills denies any urinary symptoms of burning, urgency, incontinence or hematuria. Persistence of pain prompted consult to ER on evaluation was noted to have a right UPJ stone. Patient admitted for further evaluation. Patient states she keeps herself well hydrated. In between last ER visit about 6-7 months ago was doing quite well. She is now complaining of right flank pain. Last admission about 6-7 months ago with this UPJ stone plan was to eventually put in a stent however night before procedure patient spontaneously passed stone. CBC/BMP: 02/04/17 0516 02/05/17 0526 Significant Findings Laboratory Tests Test 02/04/17 02/05/17 05:16 05:26 Monocytes (%) (Auto) 8.2 % (0.0-8.0) Chloride Level 110 MEQ/L 110 MEQ/L (98-107) (98-107) Blood Urea Nitrogen 20 MG/DL (7-18) Creatinine 1.37 MG/DL (0.50-1.00) Estimat Glomerular Filtration 39 ML/MIN (>89) 62 ML/MIN (>89) Rate Random Glucose 119 MG/DL 131 MG/DL (74-106) (74-106) Calcium Level 8.2 MG/DL (8.5-10.1) PE at Discharge awake and alert, oriented x 3, NAD, up and ambulating anicteric lungs clear regular rhythm abdomen soft, nontender mild right CVA tenderness extremities no edema Pt update on day of discharge afebrile, voiding well, no pain minimal pain, reinforced goal, diabetes teaching, diet encoruage po gluids Pt Condition on Discharge: Stable Discharge Disposition: Discharge Home Discharge Time: <= 30 minutes Discharge Instructions DIET: Follow Instructions for: Heart Healthy Diet, Diabetic Diet Activities you can perform: Weight Bearing as Guilherme Follow up Referrals: PCP Follow-up - 1 Week with PCP Urology - 1 Week with Clyde Ellis MD New Medications: Blood Glucose Monitoring W/Device (Blood Glucose Monitoring W/Device) 1 Kit Kit 1 KIT .ROUTE DIRECTED Blood Sugar Management #1 Ref 0 KIT Tramadol-Acetaminophen (Ultracet) 37.5-325 mg Tab 1 TAB PO Q6HR PRN PAIN #28 Ref 0 TAB Ciprofloxacin (Cipro) 500 Mg Tab 500 MG PO Q12H URO Days 3 TAB Metformin (Glucophage) 500 Mg Tab 500 MG PO DAILY DM Days 30 TAB Tamsulosin (Flomax) 0.4 Mg Cap 0.4 MG PO Q12HR URO Days 30 Hortencia Kim MD Feb 06, 2017 16:15
--- NOTE | 2017-02-06 21:36 | MP ---
cc: HERMAN VALLECILLO MD DATE OF SURGERY 02/05/17 PREOPERATIVE DIAGNOSIS 1. Right ureteral stone. 2. Pyelonephritis POSTOPERATIVE DIAGNOSIS 1. Right ureteral stone. 2. Pyelonephritis PROCEDURE 1. Cystourethroscopy 2. Right retrograde pyelogram 3. Right ureteroscopy 4. Right ureteral stent insertion SURGEON Lisa Vallecillo MD ANESTHESIA General COMPLICATIONS None. PREOPERATIVE ANTIBIOTICS Cipro 400 mg IV DRAINS 6X22 double-J right ureteral stent. SPECIMENS None. BLOOD LOSS Minimal DISPOSITION Stable to recovery INDICATION The patient is a 61-year female with history of kidney disease who presented to the ER with complaints of right flank pain. She was found to have a slightly elevated white count. A CT abdomen and pelvis without contrast done shows around the kidney and also right hydronephrosis secondary to an 8 mm right mid ureteral stone. She was admitted for pain control, antibiotics and urology was consulted. Over the course of the next couple of days, the stone remained in stable position but she continued to have pain. She had not been having any fevers and she had been on antibiotics. Therefore, she was scheduled for possible definitive therapy of her stone or at minimal stent placed. After risks, benefits and alternatives were explained to patient, the patient agreed to proceed. Informed consent was obtained. PROCEDURE IN DETAIL The patient brought back to the cystoscopy suite, laid supine on cystoscopy table. Appropriate time-out was performed. Under direction of anesthesiology, the patient was intubated and induced under general aesthetic. Preop antibiotics in the form of Cipro 400 mg IV were given earlier today, therefore, preoperative antibiotics were not indicated. The patient was then placed in dorsal lithotomy position, prepped and draped normal sterile surgical fashion. However, cystoscope was carefully passed into the bladder per urethra without difficulty. The bladder was carefully examined and appeared to be normal. No evidence of any bladder tumor, stones, diverticular trabeculations. Both orifices were identified and appeared in normal anatomic location. A 5-Bahraini open-ended ureteral catheter was gently into the right ureteral orifice. A right retrograde pyelogram was performed. It did not show any evidence of hydronephrosis. Her right ureter was slightly tortuous but no filling defects were obvious. The open ended ureteral catheter was removed. I then passed an indwelling guidewire up into the right kidney under the guidance of fluoroscopy for the presence of the wire in the upper pole of kidney. I went along side the wire with the semi-rigid ureteroscope inside her ureter. I was able to go all the way up to the level of the UPJ but did not encounter her stone. I carefully examined the ureter all the way down to the UVJ as well and did not see the stone. However, since I suspect it was unlikely the stone had passed, therefore, I expected that it had pushed up into the kidney. Therefore, with the wire in place I then remove the rigid semi-rigid ureteroscope. A 22-Bahraini right stent was then back loaded and placed up into the right kidney with a good position confirmed by fluoroscopy with a curl in the lower pole. this concluded the procedure. The patient was then extubated and sent to recovery in stable condition. She will be transferred back to floor for routine postop care. If she does well overnight, she will be discharged home in the morning and follow as an outpatient for definitive treatment of the stone. MD JUANCARLOS Geller/ /5:52 PM /9:25 PM
== END 2017-02-06 17:11 | disposition home or self-care (01) | DRG 694 ==
LOC: NEPC 01:41 → NEDA 03:40 → N07B 05:04
PROVIDERS: ADMIT Internal Medicine; ATTEND Internal Medicine
PROC: 0T768DZ Dilation of Right Ureter with Intraluminal Device, Via Natural or Artificial Opening Endoscopic (ICD-10-PCS; 2017-02-05)
PROC: BT1D1ZZ Fluoroscopy of Right Kidney, Ureter and Bladder using Low Osmolar Contrast (ICD-10-PCS; principal; 2017-02-05 17:03)
DX: N20.1 Calculus of ureter (principal); N17.9 Acute kidney failure, unspecified; N10 Acute pyelonephritis; Z68.41 Body mass index [BMI] 40.0-44.9, adult; Z87.442 Personal history of urinary calculi; Z87.891 Personal history of nicotine dependence; R73.02 Impaired glucose tolerance (oral); E66.9 Obesity, unspecified; E11.9 Type 2 diabetes mellitus without complications; Z85.43 Personal history of malignant neoplasm of ovary; Z90.710 Acquired absence of both cervix and uterus; Z90.722 Acquired absence of ovaries, bilateral; Z90.79 Acquired absence of other genital organ(s)
CPT/HCPCS: 74000; 74176; 74420; 80048; 80053; 80061; 81001; 82948; 83036; 83605; 83690; 85025; 87086; 93005; 96365; 96375; 96376; C1769; C2617; J0131; J0744; J1100; J1885; J2250; J2270; J2405; J3010; J7030; J7120; Q9967

== ENCOUNTER → 2017-10-15 | Outpatient (CLI) | payer MEDICARE, MEDICAID ==
[~2017-10-15] MED LIST changes: +BLOOD GLUCOSE M1 KIT; +CIPR-9 PO; -CIPR500T4 PO; -COLA100C PO; -IBUP400 PO; -LORTA5 PO; +METF500 PO; -TAMS0.4C67 PO; +TAMS5CAP PO; +ULTR37.55 PO
--- NOTE | 2017-10-15 13:37 | EKG ---
Date Performed: 10/15/2017 Time Performed: 10:54:28 PTAGE: 62 years EKG: Sinus rhythm . Poor R wave progression - probable normal variant Anterior T wave changes are nonspecific [place] e ECG PREVIOUS TRACING : 02/03/2017 10.12 No significant change from previous tracing noted. DOCTOR: Nikhil Tan Interpretating Date/Time 10/15/2017 13:36:46
== END ==
LOC: HCAV 10:33
PROVIDERS: ATTEND Urology
DX: Z01.810 Encounter for preprocedural cardiovascular examination (principal)
CPT/HCPCS: 93005

== ENCOUNTER → 2017-10-29 | Day surgery (SDC) | payer MEDICARE, MEDICAID ==
[~2017-10-29] VITALS: Ht 157.5 cm; Wt 105.7 kg
[~2017-10-29] MED LIST changes: +ACETAMINOPHEN 1000 MG/100 ML 100 ML IV ONE; +CHLORHEXIDINE GLUCONATE 2 % 1 PACK (2 CLOTHS) TOPICAL PRN; -CIPR-9 PO; +CIPROFLOXACIN 400 MG PREMIX 200 ML ONE; +DEXAMETHASONE SOD PHOS 4 MG/ML VIAL IV ONE; +DO NOT ADM ANY ANTICOAGULANT DRUGS PRN; +GLYCOPYRROLATE 1 MG/5 ML SYRINGE IV PUSH ONE; +KETOROLAC TROMETHAMINE 30 MG/ML (IVP) VIAL IV PUSH ONE; +KETOROLAC TROMETHAMINE 30 MG/ML (IVP) VIAL ONE; +LACTATED RINGER'S 1000 ML IV PRN; +METOPROLOL TARTRATE 25 MG TAB PO PRN; +MIDAZOLAM HCL 2 MG/2 ML VIAL ONE; +NEOSTIGMINE 5 MG/5 ML SYRINGE IV PUSH ONE; +ONDANSETRON HCL 4 MG/2 ML VIAL IV ONE; +PHENYLEPH/NS 1000 MCG/10 ML SYR IV ONE; +POVIDONE IODINE 5% (ANTISEPSIS KIT) 4 APPLICATIONS EACH NARE PRN; +ROCURONIUM INJ 50 MG/5 ML SYRINGE IV PUSH ONE; +SODIUM CHLORID 0.9% 500 ML IV PRN; -TAMS5CAP PO; -ULTR37.55 PO; +ePHEDrine/NS 25 MG/5 ML SYRINGE IV ONE
--- NOTE | 2017-10-29 16:13 | MP ---
cc: Clyde Ellis MD DATE OF OPERATION: 10/29/2017 DATE OF PROCEDURE: 10/29/2017 PREOPERATIVE DIAGNOSES: 1. Right renal calculus, status post cystoscopy, right ureteral stent insertion. 2. Diabetes. POSTOPERATIVE DIAGNOSES: 1. Right renal calculus, status post cystoscopy, right ureteral stent insertion. 2. Diabetes. PROCEDURE PERFORMED: 1. Cystourethroscopy. 2. Removal of right ureteral stent. 3. Right ureteroscopy. 4. Laser lithotripsy. SURGEON: Clyde Ellis MD ANESTHESIA: General. COMPLICATIONS: None. PREOPERATIVE ANTIBIOTICS: Cipro 400 mg IV. DRAINS: None. SPECIMENS: None. ESTIMATED BLOOD LOSS: Minimal. DISPOSITION: Stable to recovery. INDICATION FOR PROCEDURE: The patient is a 62-year-old female with history of diabetes and kidney stones who presented to [facility] initially last 01/2017 with right flank pain secondary to an 8 mm obstructing right UPJ stone. The patient underwent a cystoscopy and stent placement at that time and was discharged from the hospital; however, due to insurance issues, she was lost to followup. She subsequently was next seen this past about 2 months ago, 6 months after the stent was placed due to the retained ureteral stent and the stone. Treatment options were discussed and she would like to proceed with laser lithotripsy and stent removal. After risks, benefits, and alternatives were explained to the patient and the patient elected to proceed. Informed consent was obtained. DETAILS OF PROCEDURE: The patient was properly identified, brought back to the cystoscopy suite where she was laid supine on the cystoscopy table, appropriate timeout was performed. Under direction of anesthesiology, the patient was intubated and induced under general anesthetic. Preop antibiotics in the form of Cipro 400 mg IV were given 1 hour before the start of the procedure. The patient was then placed in the dorsal lithotomy position, prepped and draped in the normal sterile surgical fashion. The rigid cystoscope was then carefully passed into the patient's bladder per urethra without any difficulty. At that time, the distal portion of the retained stent was identified. It had some calcifications on the distal portion of the stent. A forest fire warden fluoroscopic image was used and could see the curl of the proximal stent in the renal pelvis, as well as the obvious stone in the mid pole. The stent itself did not appear to be calcified proximally. Therefore, I passed a Glidewire up the right ureter next to the indwelling stent under the guidance of fluoroscopy. This wire appeared to be in the upper pole. Using alligator grasping forceps, I was able to remove the stent in its entirety very easily. As stent was removed, only the distal portion of the stent in her bladder was calcified. The rest of the stent was clean. The wire remained in place. At this time, I then took a self-dilating rigid ureteroscope and went alongside the wire up into her right ureter. The right ureter was widely patent with some mild calcification, debris likely from the stent, but no stone was seen within the ureter itself. I then removed the rigid ureteroscope. We then took a flexible ureteroscope alongside the wire, all the way up into her right kidney. Her right kidney was carefully examined. Using fluoroscopy as guidance, I then found the stone in the mid pole. A 200 micron laser fiber was then used to break the stone up into tiny fragments and dust that the patient should pass on her own. The rest of the kidney appeared to be normal with no other stones. The ureter was then examined as I retracted the ureteroscope. Again, the ureter was widely patent with minimal trauma. Due to having a stent in for the last 6 months, I did not replace the stent. The bladder was drained. This concluded the procedure. The patient was extubated and sent to recovery in stable condition. She will be discharged home and follow up in 7-10 days. MD JUANCARLOS Geller/MICHAEL , 03:19 PM , 04:12 PM
[2017-10-29 16:15] VITALS: BP 146/72; PULSE 75; RESP 18
== END | disposition home or self-care (01) ==
LOC: HSDC 11:03
PROVIDERS: ATTEND Urology
DX: N20.0 Calculus of kidney (principal); E11.9 Type 2 diabetes mellitus without complications; Z79.84 Long term (current) use of oral hypoglycemic drugs
CPT/HCPCS: 00918; 52356; C1769; J0131; J0744; J1100; J1885; J2250; J2370; J2405; J2710; J3010; J7120